=== PATIENT | male | born 1995 | race African-American/Black ===

== ENCOUNTER 2017-01-03 10:14 | Emergency (ER) | payer OTHER ==
[~2017-01-03] VITALS: Ht 172.7 cm; Wt 78.6 kg
[2017-01-03 11:13] VITALS: BP 123/56
== END 2017-01-03 11:44 | disposition home or self-care (01) ==
LOC: EMS 10:16
DX: L25.9 Unspecified contact dermatitis, unspecified cause (principal); I10 Essential (primary) hypertension
CPT/HCPCS: 99281; 99283